=== PATIENT | female | born 1940 | race Caucasian/White ===

== ENCOUNTER 2023-12-28 06:36 | Day surgery (SDC) | payer BC, SELFPAY ==
[2023-12-23 11:09] VITALS: BMI 25.7
[2023-12-23 12:10] LABS: Blood Urea Nitrogen 28 mg/dl (7-17); Calcium 9.8 mg/dl (8.4-10.2); Carbon Dioxide 27 mmol/L (22-30); Chloride 101 mmol/L (98-107); Estimated Creatinine Clearance 42 ml/min; Glucose 80 mg/dl (70-99); Potassium 4.8 mmol/L (3.5-5.1); Sodium 140 mmol/L (135-145); eGFR > 60.00
[2023-12-23 12:23] LABS: Hematocrit 39.8 % (37.0-47.0); Hemoglobin 13.3 g/dL (12.0-16.0); Mean Corp Hgb Conc. 33.4 g/dL (33.0-37.0); Mean Corpuscular Hgb 33.5 pg (27.0-31.0); Mean Corpuscular Volume 100.3 fL (81.0-99.0); Red Blood Cell Count 3.97 10^6/uL (4.20-5.40); Red Cell Dist. Width 12.9 % (11.5-14.5); White Blood Cell Count 6.8 10^3/uL (4.8-10.8)
[2023-12-28] VITALS (13 sets, daily range): BP systolic 95–145; BP diastolic 53–91; BMI 25.7
[2023-12-28] MEDS: CELEBREX 200 MG PO (13:12)
[2023-12-28] MEDS: TYLENOL 1000 MG PO (13:12)
--- NOTE | 2023-12-28 18:03 | PTCARENOTE ---
Pt arrived to 2S in bed. Full assessment completed. L hip DSG with a moderate amount of drainage marked, unchanged from PACU per RETAIL ASSISTANT. Pt with decreased sensation to LLE and decreased movement to B/L LE's, pulses weak to palpation. Neurovascular
assessment otherwise WDL. PACU IVF infusing per order and to be switched once completed. Activity restrictions reviewed with pt, pt verbalized understanding. Bed locked and in the lowest position, safety maintained. Oriented to room and call umana.
[2023-12-28] MEDS: ASPIRIN 325 MG PO (18:17)
[2023-12-28] MEDS: SENOKOT 17.2 MG PO (20:54)
[2023-12-28] MEDS: COLACE 100 MG PO (20:54)
[2023-12-28] MEDS: XALATAN OPHTHALMIC SOLUTION 1 DROP BOTH EYES (20:55)
[2023-12-28] MEDS: NSS 1000 IV (20:57)
[2023-12-28] MEDS: ANCEF 5 IV (22:21)
[2023-12-28] MEDS: ROXICODONE 5 MG PO (23:40)
[2023-12-29] MEDS: MELATONIN 5 MG PO (00:04)
[2023-12-29 03:00] VITALS: BP 113/63
[2023-12-29] MEDS: ANCEF 5 IV (05:28)
--- NOTE | 2023-12-29 07:26 | W.PN.ORTHO ---
Today's Communication / Plan
-
83-year-old female POD #1 Left Hip Gamma Nail Removal 12/28/[address] Chery.
- PWB LLE with walker.
- PT/OT.
- ASA 325 mg once daily x 4 weeks for DVT prophylaxis.
- Oxycodone sent to pharmacy.
- F/U 2 weeks post-op for skin clip removal.
- Will have PT/OT see patient before discharge home.
Assessment
.
Distal Motor Intact: Yes
Dressing:
Clean, dry and intact.
Assessment:
POD #1 Left Hip Gamma Nail Removal 12/28/[address] Chery.
Plan
.
Surgery / Date: 12/28/2023 Left Hip Gamma Nail Removal
DVT Prophylaxis: Aspirin
Activity:
Out of bed.
PT/OT
Discharge Plan: Home
Subjective
.
.:
Patient resting comfortably. Reports that her pain is well controlled. Ready for D/C home.
Vital Signs and Labs
.
Vital Signs and Labs:
Lab Results
12/23/23 10:27
12/23/23 10:27
Temp Pulse Resp BP Pulse Ox
97.9 F 92 16 113/63 94
12/29/23 03:00 12/29/23 03:00 12/29/23 03:00 12/29/23 03:00 12/29/23 03:00
Non-invasive Hgb result: 11.4
--- NOTE | 2023-12-29 07:35 | W.DS.TRANS ---
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
-
Discharge Instructions:
Documentation # [id number]
Sleep Apnea Risk Low
Discharge Diagnosis/Procedures Left hip Gamma Nail Removed
Diet As tolerated
Activity With Walker
Additional Activity Partial weight bear
Driving Restrictions No driving
Bathing Restrictions OK to Shower
Instructions:
Stand-Alone Forms:
Changes to Home Medications: No
Discharge Medications:
DC Medications w/original date entered in [employer]
bimatoprost 0.01 % eye drops (Lumigan) 1 drp BOTH EYES HS Eye condition 07/11/22
fluticasone fur. 100 mcg-umeclid 62.5 mcg-vilant 25 mcg inhalat.powder (Trelegy Ellipta) 1 inh inhalation DAILY Lung/breathing issues 07/11/22
acetaminophen 500 mg capsule 1,000 mg (2 x 500 mg) PO Q6H PRN Pain #60 caps 12/28/23
aspirin 325 mg tablet 325 mg PO DAILY #30 tabs 12/28/23
docusate sodium 100 mg capsule (Colace) 100 mg PO BID #14 caps 12/28/23
oxycodone 5 mg tablet 5 mg PO Q6H PRN Pain #10 tabs 12/28/23
Home Medication Changes
Pending Results: No
Total time spent discharging patient (in min): 20 Minutes
[2023-12-29 08:29] VITALS: BP 134/69
[2023-12-29] MEDS: ASPIRIN 325 MG PO (08:30)
[2023-12-29] MEDS: NSS IV (08:32)
[2023-12-29] MEDS: SENOKOT PO (08:33)
[2023-12-29] MEDS: COLACE PO (08:33)
[2023-12-29] MEDS: TYLENOL 650 MG PO (08:36)
[2023-12-29 09:44] VITALS: BP 143/72; PULSE 90; O2SAT 92
[2023-12-29 10:05] VITALS: BP 143/72; PULSE 67; O2SAT 90
--- NOTE | 2023-12-29 11:53 | PTCARENOTE ---
Multiple conversations with pt regarding safe ambulation and partial weight bearing status. Pt not receptive to teaching and insisting that ' I am going home today'. E Karmen UNDERWOOD made aware and ok for discharge.
[2023-12-29 12:10] VITALS: BP 142/72
--- NOTE | 2023-12-29 12:10 | CM ---
Addendum entered by Shannon Corrales 12/29/23 12:40:
Spoke with Zeynep at [facility] - aware of discharge for today. Requested for pt to be seen elaina - reports pt will be made priority, should be seen tomorrow
Original Note:
Met with pt at bedside
Pt reports she lives with her in a split level home; 1 step to enter, 4 steps to main fl, 9 steps to 2nd fl - has chair lift
Pt reports independent with ADL's at baseline, ambulates with rolling walker. does cleaning, wash,etc
DME - rolling walker, commode, shower chair, shower rails, chair lift
SNF - [facility] in past
HH - [facility] in past
Reports will transport home
PCP - Dr Melisa Arthur
Pharm - [facility]
Pt seen by PT/OT - recommend SNF. Discussed with pt - refusing SNF - discussed safety concerns with pt due to weight bearing status. Pt adamant does not want to go to SNF, prefers to go home. Ortho PA aware
Spoke with pts Gerry,
Discussed PT/OT recs, safety concerns when returning home. stated he will assist his as needed, does not feel his will need SNF.
Discussed home services with both pt and her - both receptive - requested [facility]
Referral sent in [facility] - accepted by [facility]
Plan - home with [facility]
f - [phone]
== END 2023-12-29 13:03 | disposition home or self-care (01) ==
LOC: SDS 06:36
PROVIDERS: ATTENDING PHYSICIAN Specialist; FAMILY PHYSICIAN Internal Medicine
DX: T84.84XA Pain due to internal orthopedic prosthetic devices, implants and grafts, initial encounter (principal); Y83.1 Surgical operation with implant of artificial internal device as the cause of abnormal reaction of the patient, or of later complication, without mention of misadventure at the time of the procedure; M17.0 Bilateral primary osteoarthritis of knee; J44.9 Chronic obstructive pulmonary disease, unspecified; Z87.81 Personal history of (healed) traumatic fracture; Z96.642 Presence of left artificial hip joint
CPT/HCPCS: 20680; 36415; 73552; 76000; 80048; 85027; 93005; 97116; 97163; 97167; 97535; C1713

== ENCOUNTER 2024-02-29 10:51 | Inpatient (IN) | payer MEDICARE, BC, SELFPAY ==
[2024-02-15 14:15] LABS: Hematocrit 41.3 % (37.0-47.0); Hemoglobin 12.9 g/dL (12.0-16.0); Mean Corp Hgb Conc. 31.2 g/dL (33.0-37.0); Mean Corpuscular Hgb 32.7 pg (27.0-31.0); Mean Corpuscular Volume 104.8 fL (81.0-99.0); Mean Platelet Volume 10.1 fL (7.4-10.4); Platelet Count 186 10^3/uL (130-400); Red Blood Cell Count 3.94 10^6/uL (4.20-5.40); Red Cell Dist. Width 13.6 % (11.5-14.5); White Blood Cell Count 6.3 10^3/uL (4.8-10.8)
[2024-02-15 14:16] VITALS: BMI 20.2
[2024-02-15 14:40] LABS: ALT (SGPT) 18 U/L (0-35); AST (SGOT) 29 U/L (14-36); Albumin 4.2 g/dl (3.5-5.0); Alkaline Phosphatase 109 U/L (38-126); Blood Urea Nitrogen 25 mg/dl (7-17); Calcium 9.3 mg/dl (8.4-10.2); Carbon Dioxide 29 mmol/L (22-30); Chloride 103 mmol/L (98-107); Estimated Creatinine Clearance 34 ml/min; Glucose 96 mg/dl (70-99); Potassium 4.3 mmol/L (3.5-5.1); Sodium 139 mmol/L (135-145); Total Bilirubin 0.5 mg/dl (0.2-1.3); Total Protein 6.8 g/dl (6.3-8.2); eGFR > 60.00
[2024-02-23 11:40] VITALS: BMI 20.2
[2024-02-29] VITALS (8 sets, daily range): BP systolic 104–147; BP diastolic 76–101
[2024-02-29] MEDS: TYLENOL 650 MG PO ×3 (11:15→23:34)
[2024-02-29] MEDS: CELEBREX 200 MG PO (11:15)
[2024-02-29] MEDS: NORMOSOL-R/PLASMALYTE-A 1000 IV ×2 (11:23→17:11)
[2024-02-29] MEDS: BACTROBAN NASAL 1 GRAM NASAL (11:26)
[2024-02-29] MEDS: VANCOCIN 200 IV (12:55)
--- NOTE | 2024-02-29 15:08 | W.PN.UPDATE ---
Update Note
Progress Note Update
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
following left intertrochanteric hip fracture with hardware which
was removed 12/28/2023--s/p L TKA Dr. Chery 02/29/24.
History of postoperative hypoxia secondary to anxiety, chronic
obstructive pulmonary disease, and deconditioning. Incentive
spirometry will be utilized with her inhaler to be used at home
prior to hospital admission. We will use standing order Xopenex
nebulizer, steroid taper for pain and pulmonary function, address
anxiety and minimize opioids.
History of prior fractures. We will check vitamin D level as
well as TSH and advised bone density study following discharge.
--- NOTE | 2024-02-29 15:24 | W.DS.TRANS ---
Addendum entered and electronically signed by Yakelin Parikh PA-C 03/01/24 08:49:
+ Rx Ergocalciferol 50Mcg weekly
Original Note:
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
-
Discharge Instructions:
Sleep Apnea Risk Low
Discharge Diagnosis/Procedures L TKA Dr. Chery 02/29/24.
Diet As tolerated
Activity With Walker
Driving Restrictions No driving
Bathing Restrictions OK to Shower
Other Services PT
Instructions:
Stand-Alone Forms: Total Hip/Knee Replacement D/C
Changes to Home Medications: Yes
Discharge Medications:
DC Medications w/original date entered in [employer]
bimatoprost 0.01 % eye drops (Lumigan) 1 drp BOTH EYES HS glaucoma 07/11/22
fluticasone fur. 100 mcg-umeclid 62.5 mcg-vilant 25 mcg inhalat.powder (Trelegy Ellipta) 1 inh inhalation DAILY Lung/breathing issues 07/11/22
dexamethasone 4 mg tablet 4 mg PO BID inflammation #6 tabs 02/15/24
famotidine 20 mg tablet 20 mg PO HS GI prophylaxis #30 tabs 02/15/24
gabapentin 300 mg capsule 300 mg PO HS sleep/pain #10 caps 02/15/24
meloxicam 15 mg tablet 15 mg PO DAILY anti-inflammatory #14 tabs 02/15/24
mupirocin 2 % topical ointment 1 applic topical BID infection prevention #1 tube 02/15/24
cholecalciferol (vitamin D3) 50 mcg (2,000 unit) capsule (Vitamin D3) 150 mcg PO DAILY 02/23/24
acetaminophen 500 mg capsule 1,000 mg (2 x 500 mg) PO QID #60 caps 02/29/24
aspirin 325 mg tablet 325 mg PO DAILY Blood clot prevention/tx #30 tabs 02/29/24
docusate sodium 100 mg capsule (Colace) 100 mg PO BID stool softner #14 caps 02/29/24
oxycodone 5 mg tablet 5 mg PO Q6H PRN 1 tab moderate pain, 2 tabs severe pain #30 tabs 02/29/24
sennosides 8.6 mg tablet (Senokot) 17.2 mg (2 x 8.6 mg) PO BID laxative #2 tabs 02/29/24
Home Medication Changes
dexamethasone 4 mg tablet 4 mg PO BID inflammation #6 tabs 02/15/24
famotidine 20 mg tablet 20 mg PO HS GI prophylaxis #30 tabs 02/15/24
gabapentin 300 mg capsule 300 mg PO HS sleep/pain #10 caps 02/15/24
meloxicam 15 mg tablet 15 mg PO DAILY anti-inflammatory #14 tabs 02/15/24
mupirocin 2 % topical ointment 1 applic topical BID infection prevention #1 tube 02/15/24
cholecalciferol (vitamin D3) 50 mcg (2,000 unit) capsule (Vitamin D3) 150 mcg PO DAILY 02/23/24
acetaminophen 500 mg capsule 1,000 mg (2 x 500 mg) PO QID #60 caps 02/29/24
aspirin 325 mg tablet 325 mg PO DAILY Blood clot prevention/tx #30 tabs 02/29/24
docusate sodium 100 mg capsule (Colace) 100 mg PO BID stool softner #14 caps 02/29/24
oxycodone 5 mg tablet 5 mg PO Q6H PRN 1 tab moderate pain, 2 tabs severe pain #30 tabs 02/29/24
sennosides 8.6 mg tablet (Senokot) 17.2 mg (2 x 8.6 mg) PO BID laxative #2 tabs 02/29/24
Pending Results: No
[2024-02-29] MEDS: ROXICODONE 5 MG PO (17:01)
--- NOTE | 2024-02-29 18:12 | PTCARENOTE ---
Received patient from PACU around 1750 via bed in stable condition. Left knee dressing intact with scant amount of sangunous drainage. Sensation only to ankle. VS stable. Pain controlled. Patient oriented to room. Call umana in reach.
[2024-02-29] MEDS: TYLENOL PO (18:20)
[2024-02-29] MEDS: ASPIRIN 325 MG PO (18:46)
[2024-02-29] MEDS: BACTROBAN 2% OINTMENT 1 APPLIC NASAL (19:38)
[2024-02-29] MEDS: TORADOL 15 MG IV (19:39)
[2024-02-29] MEDS: DECADRON 6 MG IV (19:39)
[2024-02-29] MEDS: XOPENEX 0.63 MG INHALANT SOLUTION INH (20:18)
[2024-02-29] MEDS: VALIUM 2 MG PO (21:37)
[2024-02-29] MEDS: ANCEF 5 IV (21:37)
[2024-02-29] MEDS: NEURONTIN 300 MG PO (21:37)
[2024-02-29] MEDS: PROTONIX 40 MG PO (21:37)
[2024-03-01] MEDS: ROXICODONE 10 MG PO (02:21)
[2024-03-01 03:04] VITALS: BP 135/85
[2024-03-01] MEDS: TYLENOL 650 MG PO ×3 (03:25→12:49)
[2024-03-01] MEDS: ANCEF 5 IV (05:29)
[2024-03-01 07:12] LABS: Vitamin D, 25-OH*** 24.9 ng/mL (30-80)
[2024-03-01] MEDS: XOPENEX 0.63 MG INHALANT SOLUTION INH (07:13)
[2024-03-01 07:26] LABS: TSH 0.42 uIU/ml (0.47-4.68)
[2024-03-01 07:30] VITALS: BP 92/69
--- NOTE | 2024-03-01 08:40 | W.PN.ORTHO ---
Today's Communication / Plan
-
d/c if stable w/ therapy
Assessment
.
Distal Motor Intact: Yes
Dressing:
Clean, dry and intact.
Assessment:
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
following left intertrochanteric hip fracture with hardware which
was removed 12/28/2023--s/p L TKA Dr. Chery 02/29/24.
History of postoperative hypoxia secondary to anxiety, chronic
obstructive pulmonary disease, and deconditioning. Incentive
spirometry will be utilized with her inhaler to be used at home
prior to hospital admission. We will use standing order Xopenex
nebulizer, steroid taper for pain and pulmonary function, address
anxiety and minimize opioids--O2 sats stable
History of prior fractures. Vitamin D level checkand is low--Ergocalciferol Rx
TSH mildly low-check free T3/T4 to exclude hyperthyroid
- advised bone density study following discharge.
Plan
.
Surgery / Date: L TKA Dr. Chery 02/29/24
DVT Prophylaxis: Aspirin
Activity:
Out of bed.
PT/OT
Discharge Plan: Home w/ VN
Subjective
.
.:
Patient resting comfortably.
Vital Signs and Labs
.
Vital Signs and Labs:
Lab Results
02/15/24 13:58
02/15/24 13:58
Temp Pulse Resp BP Pulse Ox
97.8 F 103 16 92/69 91
03/01/24 07:30 03/01/24 07:30 03/01/24 07:30 03/01/24 07:30 03/01/24 07:30
Non-invasive Hgb result: 12
Physical Exam
-
HEENT: No pallor, cyanosis, or jaundice. Throat clear.
NECK: Supple. No JVD.
ABDOMEN: Soft, non-tender. No distension. BS+/normal.
EXTREMITIES: strength equal, no calf pain with palpation
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 No focal deficits. cattle knocker grossly intact
[2024-03-01] MEDS: MOBIC 15 MG PO (08:47)
[2024-03-01] MEDS: ProAmatine 5 MG PO (08:47)
[2024-03-01] MEDS: NORMOSOL-R/PLASMALYTE-A 500 IV (08:48)
[2024-03-01] MEDS: ASPIRIN 325 MG PO (08:48)
[2024-03-01] MEDS: TORADOL 15 MG IV (08:52)
[2024-03-01] MEDS: BACTROBAN 2% OINTMENT 1 APPLIC NASAL (08:52)
[2024-03-01] MEDS: VALIUM 2 MG PO (08:54)
[2024-03-01] MEDS: DECADRON 6 MG IV (09:01)
[2024-03-01] MEDS: DRISDOL (VITAMIN D2) 50000 UNITS PO (09:08)
[2024-03-01 09:48] LABS: Free T3 2.42 pg/ml (2.77-5.27)
[2024-03-01 11:29] VITALS: BP 127/81
--- NOTE | 2024-03-01 11:38 | CM ---
Addendum entered by Shannon Corrales 03/01/24 15:57:
Accepted bu [facility] for HH needs
Addendum entered by Shannon Corrales 03/01/24 14:34:
Referral sent in [facility] for HH. Spoke with Angeles at [facility] - aware referral sent
Plan - home with [facility]
f - [phone]
Original Note:
Met with pt at bedside
Pt reports she lives with her in a split level home; 1 step to enter, 5 steps to 2nd level
Pt reports needs some assist with ADL's, RW for ambulation
DME - roling walker, chair lift, wheel chair, raised toilet seat, shower rail
SNF - [facility] in past
HH - [facility] recently
Has ride home
PCP - Melisa Arthur
Pharm - [facility]
PT/OT eval pending. Plans to return home with VN - requesting [facility]
Will refer pending evals
Given IMM
Plan - anticipate home with VN
[2024-03-01 12:30] VITALS: BP 126/82; PULSE 111
[2024-03-01 14:29] VITALS: BP 126/82; BP 129/87; PULSE 111; O2SAT 93
== END 2024-03-01 14:15 | disposition home health service (06) | DRG 470 ==
LOC: 2 SOUTH 10:51
PROVIDERS: Physician Assistant Medical; ADMITTING PHYSICIAN Specialist; FAMILY PHYSICIAN Internal Medicine
PROC: 0SRD0J9 Replacement of Left Knee Joint with Synthetic Substitute, Cemented, Open Approach (ICD-10-PCS; 2024-02-29)
DX: M17.12 Unilateral primary osteoarthritis, left knee (principal); J44.9 Chronic obstructive pulmonary disease, unspecified; Z87.891 Personal history of nicotine dependence; H40.9 Unspecified glaucoma; F32.A Depression, unspecified; F41.9 Anxiety disorder, unspecified; E55.9 Vitamin D deficiency, unspecified; Z88.0 Allergy status to penicillin; M21.062 Valgus deformity, not elsewhere classified, left knee
CPT/HCPCS: 36415; 73560; 80053; 82306; 83036; 84439; 84443; 84481; 85027; 86850; 86900; 86901; 87070; 87147; 94640; 97110; 97116; 97166; C1713; C1776